=== PATIENT | female | born 1980 | race African-American/Black ===

== ENCOUNTER 2019-02-18 22:36 | Emergency (ER) | payer SELFPAY ==
[~2019-02-18] VITALS: Ht 162.6 cm; Wt 61.2 kg
[2019-02-18 23:10] VITALS: BP 156/97
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
[2019-02-18] MEDS ORDERED: IBUPROFEN 100 MG/5 ML ORAL.SUSP. PO ONE (23:45)
[2019-02-18] MEDS ORDERED: LIDOCAINE 2% VISCOUS 15 ML SOLUTION. SWSW ONE (23:45)
[2019-02-18] MEDS ORDERED: DEXAMETHASONE SOD PHOS 20 MG/5 ML VIAL. IM ONE (23:45)
== END 2019-02-19 00:09 | disposition home or self-care (01) ==
LOC: ER 22:36
DX: S00.83XA Contusion of other part of head, initial encounter (principal); R09.89 Other specified symptoms and signs involving the circulatory and respiratory systems; J39.2 Other diseases of pharynx; Z98.890 Other specified postprocedural states; Z79.899 Other long term (current) drug therapy; X58.XXXA Exposure to other specified factors, initial encounter; Y93.89 Activity, other specified; Y92.810 Car as the place of occurrence of the external cause; Y99.8 Other external cause status
CPT/HCPCS: 81025; 96372; 99283; J1100